=== PATIENT | female | born 1995 | race Caucasian/White ===

== ENCOUNTER 2022-08-28 17:03 | Emergency (ER) | payer SELFPAY ==
--- NOTE | 2022-08-28 17:07 | ED General ---
General Stated Complaint: CP,FEVER,SORE THROAT History of Present Illness Date Seen by Provider: August 28, 2022 Time Seen by Provider: 17:07 Initial Comments 27-year-old female presents with generalized malaise, body aches, sore throat, subjective fever, runny nose been going on for day or so. She has no known sick contacts Allergies and Home Medications Allergies Coded Allergies: No Known Drug Allergies (Unverified , 08/28/22) Patient Home Medication List Home Medication List Reviewed: Yes Cephalexin (Cephalexin) 500 Mg Tablet, 500 MG PO QID Prescribed by: DONELL LAKE on 08/28/22 8764 Review of Systems Review of Systems Constitutional: chills, fever, malaise EENTM: see HPI, throat pain Cardiovascular: No palpitations, No syncope Gastrointestinal: No abdominal pain, No nausea, No vomiting Genitourinary: no symptoms reported Musculoskeletal: see HPI Psychiatric/Neurological: Anxiety Physical Exam Vital Signs Vital Signs - First Documented 08/28/22 17:10 Temp 38.8 Pulse 156 Resp 18 B/P (MAP) 146/93 (110) Pulse Ox 97 O2 Delivery Room Air Capillary Refill : Height, Weight, BMI Height: '" Weight: lbs. oz. kg; BMI Method: General Appearance: No Apparent Distress, WD/WN Eyes: Bilateral Eye Normal Inspection Neck: Non Tender, Supple Respiratory: Lungs Clear, Normal Breath Sounds Cardiovascular: No Edema, Tachycardia Gastrointestinal: Non Tender, Soft Extremity: Normal Capillary Refill, Normal Inspection, Normal Range of Motion Neurologic/Psychiatric: Alert, Oriented x3, No Motor/Sensory Deficits Progress/Results/Core Measures Suspected Sepsis SIRS Temperature: Pulse: Respiratory Rate: Laboratory Tests 08/28/22 17:20: White Blood Count 11.5H Blood Pressure / Mean: Laboratory Tests 08/28/22 17:20: Creatinine 0.72, Platelet Count 283, Total Bilirubin 0.4 Results/Orders Lab Results Laboratory Tests Test 08/28/22 17:05 08/28/22 17:19 08/28/22 17:20 Range/Units Urine Color YELLOW Urine Clarity CLOUDY Urine pH 6.0 5-9 Urine Specific [place] 1.020 1.016-1.022 Urine Protein NEGATIVE NEGATIVE Urine Glucose (UA) NEGATIVE NEGATIVE Urine Ketones NEGATIVE NEGATIVE Urine Nitrite NEGATIVE NEGATIVE Urine Bilirubin NEGATIVE NEGATIVE Urine Urobilinogen 0.2 < = 1.0 MG/DL Urine Leukocyte Esterase 2+ H NEGATIVE Urine RBC (Auto) TRACE-I H NEGATIVE Urine RBC 2-5 H /HPF Urine WBC 50-100 H /HPF Urine Squamous Epithelial Cells 10-25 H /HPF Urine Crystals NONE /LPF Urine Bacteria LARGE H /HPF Urine Casts NONE /LPF Urine Mucus SMALL H /LPF Urine Culture Indicated YES Influenza Type A (RT-PCR) Not Detected Not Detecte Influenza Type B (RT-PCR) Not Detected Not Detecte SARS-CoV-2 RNA (RT-PCR) Not Detected Not Detecte Group A Streptococcus Screen NEGATIVE NEGATIVE White Blood Count 11.5 H 4.3-11.0 10^3/uL Red Blood Count 4.69 3.80-5.11 10^6/uL Hemoglobin 13.6 11.5-16.0 g/dL Hematocrit 42 35-52 % Mean Corpuscular Volume 89 80-99 fL Mean Corpuscular Hemoglobin 29 25-34 pg Mean Corpuscular Hemoglobin Concent 33 32-36 g/dL Red Cell Distribution Width 12.8 10.0-14.5 % Platelet Count 283 130-400 10^3/uL Mean Platelet Volume 11.1 9.0-12.2 fL Percent Immature Platelet Fraction 5.8 0.0-7.6 % Sodium Level 137 135-145 MMOL/L Potassium Level 3.9 3.6-5.0 MMOL/L Chloride Level 102 98-107 MMOL/L Carbon Dioxide Level 21 21-32 MMOL/L Anion Gap 14 5-14 MMOL/L Blood Urea Nitrogen 7 7-18 MG/DL Creatinine 0.72 0.60-1.30 MG/DL Estimat Glomerular Filtration Rate 119 BUN/Creatinine Ratio 10 Glucose Level 111 H 70-105 MG/DL Calcium Level 9.7 8.5-10.1 MG/DL Corrected Calcium 8.5-10.1 MG/DL Total Bilirubin 0.4 0.1-1.0 MG/DL Aspartate Amino Transf (AST/SGOT) 24 5-34 U/L Alanine Aminotransferase (ALT/SGPT) 38 0-55 U/L Alkaline Phosphatase 139 H 40-136 U/L C-Reactive Protein 0.85 H <0.50 MG/DL Total Protein 8.4 H 6.4-8.2 GM/DL Albumin 4.6 H 3.2-4.5 GM/DL Monoscreen NEGATIVE NEGATIVE My Orders Orders - LAKE,DONELL L DO Cbc No Diff (08/28/22 17:12) Comprehensive Metabolic Panel (08/28/22 17:12) Rapid Strep A Screen (08/28/22 17:12) Ua Culture If Indicated (08/28/22 17:12) Influenza A And B By Pcr (08/28/22 17:12) Crp Fs (08/28/22 17:12) Covid 19 Inhouse Test (08/28/22 17:12) Monotest (08/28/22 17:12) Urine Bedside (08/28/22 17:12) Ibuprofen Tablet (Motrin Tablet) (08/28/22 17:15) Lactated Ringers (Lr 1000 Ml Iv Solution (08/28/22 17:15) Chest Pa/Lat (2 View) (08/28/22 17:15) Urine Culture (08/28/22 17:05) Throat Culture Strep A Confirm (08/28/22 17:19) Ns Iv 1000 Ml (Sodium Chloride 0.9%) (08/28/22 17:55) Ceftriaxone Iv/Im (Rocephin Iv/Im) (08/28/22 17:59) Vital Signs/I&O 08/28/22 17:10 Temp 38.8 Pulse 156 Resp 18 B/P (MAP) 146/93 (110) Pulse Ox 97 O2 Delivery Room Air Capillary Refill : Progress Note : Progress Note Patient's symptoms improved significantly with treatment of her fever and some IV fluids. She reports that she is feeling much better. I suspect patient likely has a viral syndrome causing her sore throat congestion along with a urinary tract infection. I will treat her with Rocephin IV in the ER and then continue with Keflex to cover any potential pyelonephritis. Patient chest x-ray was ordered reviewed and shows no significant findings. Patient's labs were ordered reviewed and interpreted by me shows a very mild white count but otherwise no acute findings with negative strep, COVID, mono and flu. Patient should follow-up with her primary care provider as needed. She was stable upon Departure Impression Primary Impression: Acute cystitis without hematuria Additional Impression: Viral upper respiratory infection Disposition: 01 HOME, SELF-CARE Condition: Stable Departure-Patient Inst. Patient Instructions: Viral Syndrome (DC), Urinary Tract Infection, Adult (DC) Add. Discharge Instructions: Drink plenty of fluids, Tylenol or ibuprofen as needed for fever, chills and discomfort. Please follow-up with your primary care provider once your antibiotics are finished for recheck of your symptoms Scripts Cephalexin (Cephalexin) 500 Mg Tablet 500 MG PO QID, #20 TAB 0 Refills . Prov: DONELL LAKE DO 08/28/22 DONELL LAKE DO August 28, 2022 17:07
[2022-08-28] MEDS ORDERED: LACTATED RINGERS 1,000 ML IV STA (17:15)
[2022-08-28] MEDS ORDERED: IBUPROFEN TABLET 200 MG TAB PO STA (17:15)
[2022-08-28 17:39] LABS: BILIRUBIN,URINE NEGATIVE (NEGATIVE); COLOR,URINE YELLOW; GLUCOSE, URINE (UA) NEGATIVE (NEGATIVE); KETONES,URINE NEGATIVE (NEGATIVE); LEUKOCYTE ESTERASE ,URINE 2+ (NEGATIVE); NITRITE,URINE NEGATIVE (NEGATIVE); PROTEIN,URINE NEGATIVE (NEGATIVE)
--- NOTE | 2022-08-28 17:42 | Diagnostic Imaging Report ---
EXAMINATION: Chest, two views. HISTORY: Fever. COMPARISON: None available. FINDINGS: The lung volumes are normal. No focal consolidation is seen. No large pleural effusion or pneumothorax is seen. The cardiomediastinal silhouette is normal in size and contour. No acute osseous abnormality is seen. IMPRESSION: 1. No acute pleural-parenchymal process. Dictated by: Dictated on workstation # [id number]
[2022-08-28 17:46] LABS: BACTERIA,URINE LARGE /HPF; CLARITY,URINE CLOUDY; WBC,URINE 50-100 /HPF
[2022-08-28 17:47] LABS: HEMOGLOBIN 13.6 g/dL (11.5-16.0); MEAN PLATELET VOLUME 11.1 fL (9.0-12.2); WHITE BLOOD COUNT 11.5 10^3/uL (4.3-11.0)
[2022-08-28 17:52] LABS: ALANINE AMINOTRANSFERASE 38 U/L (0-55); ALBUMIN 4.6 GM/DL (3.2-4.5); ALKALINE PHOSPHATASE 139 U/L (40-136); BILIRUBIN,TOTAL 0.4 MG/DL (0.1-1.0); BUN/CREATININE RATIO 10; CALCIUM 9.7 MG/DL (8.5-10.1); CARBON DIOXIDE 21 MMOL/L (21-32); CHLORIDE 102 MMOL/L (98-107); CREATININE SERUM 0.72 MG/DL (0.60-1.30); GFR ESTIMATED 119; GLUCOSE 111 MG/DL (70-105); POTASSIUM 3.9 MMOL/L (3.6-5.0); SODIUM 137 MMOL/L (135-145); TOTAL PROTEIN 8.4 GM/DL (6.4-8.2)
[2022-08-28] MEDS ORDERED: NS IV 1000 ML 1,000 ML IV STA (17:55)
[2022-08-28] MEDS ORDERED: cefTRIAXone IV/IM 1,000 MG in NS (IVPB) 50 ML IV STA (17:59)
[2022-08-28] MEDS ORDERED: CEPH500T PO ×2 (18:25→18:44)
[2022-08-28 18:48] VITALS: BP 127/74
== END 2022-08-28 18:48 | disposition home or self-care (01) ==
LOC: ER FS 17:05
DX: N30.00 Acute cystitis without hematuria (principal); J06.9 Acute upper respiratory infection, unspecified; Z20.822 Contact with and (suspected) exposure to COVID-19; Z28.310 Unvaccinated for COVID-19
CPT/HCPCS: 36415; 71046; 80053; 81000; 84703; 85027; 86141; 86308; 87088; 87430; 87636